=== PATIENT | female | born 1985 | race Caucasian/White ===

== ENCOUNTER 2018-09-19 08:49 | Emergency (ER) | payer OTHER ==
[2018-09-19 09:04] VITALS: BP 128/53; PULSE 79; TEMP 98.3; BMI 29.8
[2018-09-19] MEDS ORDERED: IBUPROFEN 400 MG TABLET (FP) PO ONE ×2 (09:38→09:41)
--- NOTE | 2018-09-19 09:45 | PDOC ---
History of Present Illness - General Chief Complaint: Back Pain Stated Complaint: BACK PAIN Time Seen by Provider: 09/19/18 09:18 History Source: Patient Exam Limitations: No Limitations - History of Present Illness Initial Comments: 09/19/18 09:39 Patient came for evaluation of many months of back pain. States gets intermittent spasm and acute tenderness to left shoulder area. Denies any history or knowledge of injury. No exercise change, no recent URI. States pain has been intermittent on and off over the past 6-7 months, possibly one year. He rates his had extensive cardiology workup due to intermittent chest pain and shortness of breath, some exercise intolerance. States has had EEGs and Holter monitors where it was noted she had some irregularities. Is waiting for a follow -up appointment this week to continue with cardiology and stress test. Patient has no history of her disease, any abnormalities from , no family history strong for early heart disease. 09/19/18 09:40 Occurred: reports: other (months of discomfort.. ) Severity: reports: mild, moderate Pain Location: reports: back (upper left chest/ worse with movement) Method of Injury: Yes: unknown Associated Symptoms (Fall): chest pain, dizziness Past History - Travel Traveled outside of the country in the last 30 days: No Close contact w/someone who was outside of country & ill: No - Past Medical History Allergies/Adverse Reactions: Allergies Allergy/AdvReac Type Severity Reaction Status Date / Time No Known Allergies Allergy Verified 09/19/18 08:59 Home Medications: Ambulatory Orders Ibuprofen 400 mg PO Q6H PRN #30 tablet 09/19/18 Asthma: No Cancer: No Cardiac Disorders: No COPD: No Diabetes: No HTN: No Seizures: No Thyroid Disease: No - Suicide/Smoking/Psychosocial Hx Smoking History: Never smoked Hx Alcohol Use: No Drug/Substance Use Hx: No Hx Substance Use Treatment: No Review of Systems - Review of Systems Able to Perform ROS?: Yes Is the patient limited Divehi proficient: Yes Constitutional: Yes: See HPI. No: Symptoms Reported, Chills, Fever, Malaise HEENTM: Yes: See HPI. No: Symptoms Reported, Nose Congestion, Difficulty Swallowing Respiratory: Yes: Symptoms reported, See HPI, Cough, Orthopnea, Shortness of Breath Cardiac (ROS): Yes: Symptoms Reported, See HPI, Irregular Heart Rate (on occasions but none today) ABD/GI: Yes: See HPI. No: Symptoms Reported Musculoskeletal: Yes: Symptoms Reported, See HPI, Back Pain (primarily thoracic spine area worse with movement, reproduced with grabbing/using right and left arms) All Other Systems: Reviewed and Negative *Physical Exam - Vital Signs Last Vital Signs Temp Pulse Resp BP Pulse Ox 98.3 F 79 16 128/53 L 100 09/19/18 09:00 09/19/18 09:00 09/19/18 09:00 09/19/18 09:00 09/19/18 09:00 - Physical Exam General Appearance: Yes: Nourished, Appropriately Dressed. No: Apparent Distress HEENT: positive: ANDREY, Normal ENT Inspection, TMs Normal, Pharynx Normal Neck: positive: Supple. negative: Tender Respiratory/Chest: positive: Lungs Clear, Normal Breath Sounds. negative: Chest Tender Cardiovascular: positive: Regular Rhythm, Regular Rate Musculoskeletal: positive: Normal Inspection. negative: CVA Tenderness (L), Decreased Range of Motion, Muscle Spasm (mild tenderness and tight musculature at the paravertebral spinous muscles of thoracic area worse on the left than the right. With some knots in the trapezius area. Pain is reproduced with pushing and pulling of arms and abduction of left arm against resistance reproduces pain to her upper back.), Vertebral Tenderness Integumentary: positive: Normal Color. negative: Swelling, Ecchymosis, Bruising Neurologic: positive: union organiser II-XII NML intact, Fully Oriented, Alert, Normal Mood/ Affect, Normal Response, Motor Strength 5/5 Moderate Sedation - Procedure Monitoring Vital Signs: Procedure Monitoring Vital Signs Temperature 98.3 F 09/19/18 09:00 Pulse Rate 79 09/19/18 09:00 Respiratory Rate 16 09/19/18 09:00 Blood Pressure 128/53 L 09/19/18 09:00 O2 Sat by Pulse Oximetry (%) 100 09/19/18 09:00 Heart Score/ECG Review - ECG Intrepretation Rhythm: Regular Rhythm - [place]: Normal - ECG Impressions Normal ECG: Yes Non-specific ST Elevation: No Ischemic Changes: No ED Treatment Course - RADIOLOGY Radiology Studies Ordered: Category Date Time Status CHEST PA & LAT [RAD] Stat Radiology 09/19/18 09:37 Ordered Progress Note - Progress Note Progress Note: Musculoskeletal pain. Chest x-ray negative for infiltrates, no cardiomegaly or any other abnormalities noted. EKG normal sinus rhythm without any ischemia or apparent/irregularities. We'll treat for musculoskeletal pain with ibuprofen and encouraged to follow up with agricultural sciences professor to complete remainder of testing for arrhythmia history. *DC/Admit/Observation/Transfer Diagnosis at time of Disposition: Upper back strain Qualifiers: Encounter type: initial encounter Qualified Code(s): S29.012A - Strain of muscle and tendon of back wall of thorax, initial encounter - Discharge Dispostion Disposition: HOME Condition at time of disposition: Stable Decision to Admit order: No - Prescriptions Prescriptions: Ibuprofen 400 mg PO Q6H PRN #30 tablet PRN Reason: Pain - Referrals Referrals: Anna Asher MD [Primary Care Provider] - - Patient Instructions Printed Discharge Instructions: DI for Back Strain or Sprain Additional Instructions: Rest, ice to area on and off for 15 minutes 4-6 times a day Avoid heavy lifting or exercise until pain and swelling is resolved or until further directed Keep area highly elevated to reduce swelling Use splints/Jagdish wrap as directed Followup with orthopedist in one to 2 days if not improving, if significantly improved may wait one week for followup with orthopedist May use ibuprofen every 6 hours as needed for pain - Post Discharge Activity Forms/Work/School Notes: Back to Work
--- NOTE | 2018-09-19 12:06 | EKG ---
Test Reason : Blood Pressure : / mmHG Vent. Rate : 069 BPM Atrial Rate : 069 BPM P-R Int : 148 ms QRS Dur : 078 ms QT Int : 404 ms P-R-T Axes : 063 058 022 degrees QTc Int : 432 ms POOR DATA QUALITY, INTERPRETATION MAY BE ADVERSELY AFFECTED NORMAL SINUS RHYTHM NORMAL ECG NO PREVIOUS ECGS AVAILABLE Confirmed by ZHANNA SAMANIEGO MD ([id number]) on 09/19/2018 12:05:48 PM Referred By: Confirmed By:ZHANNA SAMANIEGO MD
== END 2018-09-19 10:28 | disposition home or self-care (01) ==
LOC: JERFT 08:49
DX: S29.012A Strain of muscle and tendon of back wall of thorax, initial encounter (principal); X58.XXXA Exposure to other specified factors, initial encounter; Y93.89 Activity, other specified; Y92.89 Other specified places as the place of occurrence of the external cause
CPT/HCPCS: 71046-TC-FY; 93005; 93010; 99281-25